=== PATIENT | female | born 1960 | race Two or more races ===

== ENCOUNTER 2018-07-05 13:04 | Emergency (ER) | payer MEDICAID ==
[~2018-07-05] VITALS: Ht 172.7 cm; Wt 113.4 kg
[2018-07-05] MEDS ORDERED: NKM (13:14)
[2018-07-05 13:30] VITALS: BP 137/69
[2018-07-05] MEDS ORDERED: Albuterol ud Inhalation HHN ONE (13:30)
--- NOTE | 2018-07-05 13:33 | NUR ---
ED Nurse Note: Pt walked in to ER with daughter c/o sore throat 10/10 for coughing. pt aao x4 and calm and cooperative. skin clean and intact.
[2018-07-05] MEDS ORDERED: IBUPROFEN600 MG ORAL (13:52)
[2018-07-05] MEDS ORDERED: ALBUTEROL SULF8.5 GM INH (13:52)
[2018-07-05] MEDS ORDERED: TAMIFLU75 MG ORAL (13:52)
[2018-07-05 14:02] VITALS: BP 137/69
--- NOTE | 2018-07-05 14:05 | NUR ---
ER DISCHARGE NOTE: Patient is cleared to be discharged per ERMD, pt is aox4, accompanied by daughter, on room air, with stable vital signs. pt was given dc and prescription instructions, pt was able to verbalize understanding, pt id band removed without complications. pt is able to ambulate with steady gait. pt took all belongings.
--- NOTE | 2018-07-05 14:06 | Emergency Room Report ---
History of Present Illness General Chief Complaint: Flu Like Symptoms Source: Patient Present Illness HPI Patient 58-year-old female presented after increased cough and congestion. Patient reports having bilateral earache. She reports having increased sore throat as well as nonproductive cough. She reports being a smoker. She had subjective fever. She denied any increase in leg pain or swelling. She denies vomiting. Allergies: Coded Allergies: No Known Allergies (Unverified , 07/05/18) Patient History Past Medical History: see triage record Last Menstrual Period: n/a Reviewed Nursing Documentation: PMH: Agreed; PSxH: Agreed Nursing Documentation-PMH Past Medical History: No Stated History Review of Systems All Other Systems: negative except mentioned in HPI Physical Exam Vital Signs Date Time Temp Pulse Resp B/P (MAP) Pulse Ox O2 Delivery O2 Flow Rate FiO2 07/05/18 13:07 98.2 87 20 129/61 97 Room Air 07/05/18 13:41 21 General Appearance: well appearing, no apparent distress, alert, GCS 15, obese Head: normocephalic, atraumatic ENT: hearing grossly normal, normal pharynx, normal voice Neck: full range of motion, supple Respiratory: no respiratory distress, speaking full sentences, wheezing Cardiovascular #1: normal peripheral pulses, no edema Gastrointestinal: normal inspection Musculoskeletal: normal inspection, back normal, no calf tenderness Neurologic: normal inspection, alert, oriented x3, responsive, smash hand III-XII nml as tested, normal gait Psychiatric: mood/affect normal Skin: no rash Medical Decision Making Diagnostic Impression: Primary Impression: Bronchitis ER Course Patient presented for cough. Differential diagnosis included but was not limited to bronchitis, pneumonia, pulmonary embolism, pericarditis, asthma, foreign body. Because of complexity of patient's case laboratory testing and imaging studies were ordered. Patient was noted to have some subjective fever as well as nonproductive cough given the prevalence of flu patient will be treated empirically for influenza despite negative flu study. Chest x-ray 1 view read by radiology showed bronchial thickening with normal cardiac size and no definite infiltrate. Patient is given some breathing treatment with some improvement. Patient was advised smoking cessation. Patient was advised to return if she began having worsening shortness of breath or other concerns. Last Vital Signs Date Time Temp Pulse Resp B/P (MAP) Pulse Ox O2 Delivery O2 Flow Rate FiO2 07/05/18 13:54 89 20 100 Room Air 21 07/05/18 13:30 98.0 137/69 Status: improved Disposition: HOME, SELF-CARE Condition: Stable Scripts Ibuprofen* (MOTRIN*) 600 Mg Tablet 600 MG ORAL Q8H PRN for For Pain, #30 TAB 0 Refills Prov: Derik Araujo MD 07/05/18 Oseltamivir Phosphate (Tamiflu) 75 Mg Capsule 75 MG ORAL TWICE A DAY, #10 CAP Prov: Derik Araujo MD 07/05/18 Albuterol Sulfate* (ALBUTEROL SULFATE MDI*) 8.5 Gm Hfa.aer.ad 2 PUFF INH Q4H, #1 INH 0 Refills Prov: Derik Araujo MD 07/05/18 Patient Instructions: Acute Bronchitis Derik Araujo MD Jul 05, 2018 14:06
== END 2018-07-05 14:00 | disposition home or self-care (01) ==
LOC: EMR 13:50
DX: J40 Bronchitis, not specified as acute or chronic (principal)
CPT/HCPCS: 71045; 86710; 94640; 99284